=== PATIENT | female | born 1965 | race Caucasian/White ===

== ENCOUNTER 2023-06-15 13:07 | Outpatient (CLI) | payer MEDICAID | END 2023-06-15 23:59 | disposition home or self-care (01) | LOC: RAD 13:07 | PROVIDERS: ATTEND Student in an Organized Health Care Education/Training Program | DX: M85.871 Other specified disorders of bone density and structure, right ankle and foot (principal); M77.31 Calcaneal spur, right foot; M79.671 Pain in right foot | CPT/HCPCS: 73630 ==